=== PATIENT | female | born 1980 | race Caucasian/White ===

== ENCOUNTER 2020-12-17 | Inpatient (IN) ==
[2020-12-17] MEDS ORDERED: SODIUM CHLORIDE 0.9% 1000ML 1,000 ML IV STA (00:18)
[2020-12-17] MEDS ORDERED: ONDANSETRON INJ 2 MG/ML 2 ML VIAL IV STA (00:38)
[2020-12-17] MEDS ORDERED: HYDROmorphone INJ 0.5 MG/0.5 ML SYR IV STA (00:38)
[2020-12-17 00:59] LABS: Basophils # (auto) 0.04 K/uL (0-0.2); Basophils % (auto) 0.5 %; Eosinophils # (auto) 0.28 K/uL (0-0.5); Eosinophils % (auto) 3.2 %; Hemoglobin 13.9 g/dL (12.0-16.0); Immature Granulocytes # (auto) 0.02 K/uL (0.00-0.02); Immature Granulocytes % (auto) 0.2 %; Lymphocytes # (auto) 1.99 K/uL (1.2-3.4); Lymphocytes % (auto) 22.6 %; Mean Corpuscular Hemoglobin 30.3 pg (25-34); Mean Corpuscular Hgb Conc 33.9 g/dL (32-36); Mean Corpuscular Volume 89.5 fL (80-100); Mean Platelet Volume 10.8 fL (7.4-10.4); Monocytes # (auto) 0.71 K/uL (0.11-0.59); Neutrophils # (auto) 5.78 K/uL (1.4-6.5); Neutrophils % (auto) 65.5 %; Platelet Count 209 K/uL (130-400); RDW Standard Deviation 42.7 fL (36.4-46.3); Red Blood Count 4.58 M/uL (4.2-5.4); White Blood Count 8.82 K/uL (4.8-10.8)
[2020-12-17 00:59] LABS: Appearance Urine Cloudy (Clear); Bacteria Urine Automated Negative (Negative); Bilirubin Urine Negative (Negative); Blood Urine 3+ (Negative); Color Urine Yellow; Epithelial Cell Urine Auto >30 /lpf (0-5); Glucose Urine UA Negative (Negative); Ketones Urine Negative (Negative); Leukocyte Esterase Urine 1+ (Negative); Nitrite Urine Negative (Negative); Protein Urine Trace (Negative); RBC Urine Automated >30 /hpf (0-4); Specific Gravity Urine 1.023 (1.000-1.030); Urobilinogen Urine Negative (Negative); pH Urine 6.5 (4.5-7.5)
[2020-12-17 01:17] LABS: Albumin Level 3.3 gm/dl (3.4-5.0); BUN Creatinine Ratio 18.2 (10-20); Calcium 8.4 mg/dl (8.5-10.1); Creatinine Clr Calc Pharmacy 61.1 ml/min; Est GFR (African American) 61.9 ml/min; Est GFR (Non-African American) 53.4 ml/min; Potassium 4.3 mmol/L (3.5-5.1)
[2020-12-17 01:20] LABS: Bilirubin,Total 0.3 mg/dl (0.2-1); Globulin 3.4 gm/dl (2.5-4.0); Total Protein 6.7 gm/dl (6.4-8.2)
[2020-12-17] MEDS ORDERED: OPTIRAY 320 100ml IV ONE (01:35)
--- NOTE | 2020-12-17 01:40 | Emergency Department Note ---
History of Present Illness General Chief complaint: Abdominal Pain Stated complaint: RT SIDE ABD PAIN Source: patient and RN notes reviewed Mode of arrival: ambulatory Limitations: no limitations History of Present Illness Provider complaint: Right-sided abdominal pain Maximum Pain Intensity: 9 This patient is a 40-year-old female who presents to the emergency department with complaints of right-sided abdominal pain that seems to be intermittently worsening despite oral Bactrim that was prescribed by the urgent care. Patient has been on this antibiotic for over 2 days without any improvement. She was diagnosed with a UTI. Patient states she did have fried chicken for lunch and dinner but does not feel that the pain correlates with eating. She denies any vomiting but states she has nauseous. She denies any fevers or diarrhea. Patient denies any chance of and states she is on oral control. Home Medications Medication Instructions Recorded Confirmed Type fluoxetine 40 mg capsule 80 mg PO DAILY 04/27/19 12/17/20 History norethindrone 1.5 mg-ethinyl 1 tab PO DAILY 04/27/19 12/17/20 History estradiol 30 mcg(21)/iron 75 mg(7) tablet (Microgestin Fe 1.5/30 (28)) Allergies Allergy/AdvReac Type Severity Reaction Status Date / Time No Known Allergies Allergy Verified 12/17/20 00:57 Past Med/Surg History Medical History Depression with anxiety Surgical History Hx of adenoidectomy Hx of section Family History Mother Myocardial infarction Denies family history of Ovarian cancer Prostate cancer Breast cancer Colorectal cancer Social History Smoking Status: Never smoker Hx Alcohol Use: No Hx Substance Use: No Preferred Language: Yoruba Communication Ability: Effective 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 and A total of 10 systems reviewed and were otherwise negative Physical Exam Vital Signs Vital Signs - 24 hr 12/17/20 00:02 12/17/20 02:54 Temperature 36.2 C L Temperature Source Temporal Artery Scan Pulse Rate 70 Pulse Rate [Brachial] 59 L Pulse Rhythm Regular Respiratory Rate 18 20 Respiratory Effort / Characteristics Non-Labored Spontaneous Respiratory Depth Normal Respiratory Pattern Regular Blood Pressure 142/94 H Blood Pressure [Right Arm] 148/98 H Blood Pressure Mean 110 Blood Pressure Mean [Right Arm] 114 Pulse Oximetry 98 97 Oxygen Delivery Method Room Air Sepsis Recent Fever Within 48 Hours No Sepsis New/Unexplained Change in Mental Status No Sepsis Action Taken by Nursing No Action Required Vital signs reviewed. General: Well-appearing 40 yo female, in significant discomfort. HEENT: No scleral icterus, PERRLA, neck supple. Atraumatic. Cardiovascular: Regular rate and rhythm, no extra sounds. Pulmonary: Clear to auscultation bilaterally, normal work of breathing. Abdomen: Soft, diffusely tender >RUQ but no CVA tenderness, mildly distended, nondistended, positive bowel sounds. Musculoskeletal: Atraumatic, no peripheral edema. Neurologic: Patient awake alert and oriented x 3 Skin: Warm, dry, no rash Course Administered Medications Fluoxetine HCl (Fluoxetine Hcl 20 Mg Cap) 80 mg PO DAILY NEELAM Stop: 01/16/21 08:59 Last Admin: 12/17/20 07:23 Dose: Not Given Documented by: [id number] Hydromorphone HCl (Hydromorphone Inj 1 Mg/Ml Syringe) 0.5 mg IV Q2H PRN PRN Reason: Pain Stop: 12/31/20 04:46 Last Admin: 12/17/20 07:29 Dose: 0.5 mg Documented by: [id number] Lactated Ringer's (Lr) 1,000 mls @ 80 mls/hr IV .[id number] NEELAM Stop: 12/18/20 05:59 Last Admin: 12/17/20 16:25 Dose: 80 mls/hr Documented by: [id number] Infusion: 12/17/20 16:25 Dose: 80 mls/hr Documented by: [id number] Admin: 12/17/20 05:03 Dose: 80 mls/hr Documented by: [id number] Miscellaneous (*Oral Contraceptive*Order Awaiting Action) 1 ea N/A QS NEELAM Stop: 01/16/21 07:59 Last Admin: 12/17/20 12:37 Dose: Not Given Documented by: [id number] Admin: 12/17/20 07:23 Dose: Not Given Documented by: [id number] Ondansetron HCl (Ondansetron Inj 2 Mg/Ml 2 Ml Vial) 4 mg IV Q6H PRN PRN Reason: Nausea And Vomiting Stop: 01/16/21 04:59 Last Admin: 12/17/20 07:29 Dose: 4 mg Documented by: [id number] Discontinued Medications Hydromorphone HCl (Hydromorphone Inj 0.5 Mg/0.5 Ml Syr) 0.5 mg IV NOW STA Stop: 12/17/20 00:39 Last Admin: 12/17/20 01:00 Dose: 0.5 mg Documented by: [id number] Hydromorphone HCl (Hydromorphone Inj 0.5 Mg/0.5 Ml Syr) 0.5 mg IV Q30M PRN PRN Reason: Pain Stop: 12/31/20 02:26 Last Admin: 12/17/20 02:44 Dose: 0.5 mg Documented by: [id number] Hydromorphone HCl (Hydromorphone Inj 0.5 Mg/0.5 Ml Syr) Confirm Administered Dose 0.5 mg .ROUTE .STK-MED ONE Stop: 12/17/20 04:54 Last Admin: 12/17/20 05:06 Dose: 0.5 mg Documented by: [id number] Sodium Chloride (Nss 1000ml) 1,000 mls @ 999 mls/hr IV .Q1H1M STA Stop: 12/17/20 01:18 Last Infusion: 12/17/20 02:06 Dose: 0 mls/hr Documented by: [id number] Admin: 12/17/20 01:00 Dose: 999 mls/hr Documented by: [id number] Ceftriaxone Sodium (Rocephin) 2,000 mg in 70 mls @ 140 mls/hr IV NOW STA Stop: 12/17/20 02:56 Last Infusion: 12/17/20 04:10 Dose: 0 mls/hr Documented by: [id number] Admin: 12/17/20 02:53 Dose: 140 mls/hr Documented by: [id number] Ioversol (Optiray 320 100ml) 94 ml IV ONCE ONE Stop: 12/17/20 01:36 Last Admin: 12/17/20 01:36 Dose: 94 ml Documented by: [id number] Ondansetron HCl (Ondansetron Inj 2 Mg/Ml 2 Ml Vial) 4 mg IV NOW STA Stop: 12/17/20 00:39 Last Admin: 12/17/20 01:00 Dose: 4 mg Documented by: [id number] Ondansetron HCl (Ondansetron Inj 2 Mg/Ml 2 Ml Vial) Confirm Administered Dose 4 mg .ROUTE .STK-MED ONE Stop: 12/17/20 04:56 Last Admin: 12/17/20 05:03 Dose: 4 mg Documented by: [id number] Medical Decision Making Differential Diagnosis Etiologies such as biliary colic, cholecystitis, hepatitis, perihepatitis, pancreatitis, cardiac disease, pancreatitis, gastritis, peptic ulcer disease, appendicitis, ovarian cyst, ovarian torsion, ectopic , pelvic inflammatory disease, cystitis, diverticulitis, mesenteric ischemia, inflammatory bowel disease, ileus, bowel obstruction, aortic pathology, shingles, as well as others were considered. Medical Records Attestation: I reviewed the patient's medical records. Home Medications Current Medication List: was personally reviewed by me Laboratory Data Attestation: I reviewed the patient's lab results. Result diagrams: 12/17/20 00:50 12/17/20 00:50 Lab Results 12/17/20 12/17/20 12/17/20 Range/Units 00:30 00:30 00:50 WBC 8.82 (4.8-10.8) K/uL RBC 4.58 (4.2-5.4) M/uL Hgb 13.9 (12.0-16.0) g/dL Hct 41.0 (37-47) % MCV 89.5 (80-100) fL MCH 30.3 (25-34) pg MCHC 33.9 (32-36) g/dL RDW Std Deviation 42.7 (36.4-46.3) fL RDW Coeff of [place] 13.0 (11.5-14.5) % Plt Count 209 (130-400) K/uL MPV 10.8 H (7.4-10.4) fL Immature Gran % (Auto) 0.2 % Neut % (Auto) 65.5 % Lymph % (Auto) 22.6 % [place] % (Auto) 8.0 % Eos % (Auto) 3.2 % Baso % (Auto) 0.5 % Neut # (Auto) 5.78 (1.4-6.5) K/uL Lymph # (Auto) 1.99 (1.2-3.4) K/uL [place] # (Auto) 0.71 H (0.11-0.59) K/uL Eos # (Auto) 0.28 (0-0.5) K/uL Baso # (Auto) 0.04 (0-0.2) K/uL Immature Gran # (Auto) 0.02 (0.00-0.02) K/uL Sodium (136-145) mmol/L Potassium (3.5-5.1) mmol/L Chloride (98-107) mmol/L Carbon Dioxide (21-32) mmol/L Anion Gap (3-11) BUN (7-18) mg/dl Creatinine (0.6-1.2) mg/dl Est Cr Clr Drug Dosing ml/min Est GFR ( Amer) ml/min Est GFR (Non-Af Amer) ml/min BUN/Creatinine Ratio (10-20) Glucose (70-99) mg/dl Calcium (8.5-10.1) mg/dl Total Bilirubin (0.2-1) mg/dl AST (15-37) U/L ALT (12-78) U/L Alkaline Phosphatase (45-117) U/L Total Protein (6.4-8.2) gm/dl Albumin (3.4-5.0) gm/dl Globulin (2.5-4.0) gm/dl Albumin/Globulin Ratio (0.9-2) Lipase (73-393) U/L Urine Color Yellow Urine Appearance Cloudy A (Clear) Urine pH 6.5 (4.5-7.5) Ur Specific [place] 1.023 (1.000-1.030) Urine Protein Trace H (Negative) Urine Glucose (UA) Negative (Negative) Urine Ketones Negative (Negative) Urine Blood 3+ H (Negative) Urine Nitrite Negative (Negative) Urine Bilirubin Negative (Negative) Urine Urobilinogen Negative (Negative) Ur Leukocyte Esterase 1+ H (Negative) Urine WBC (Auto) 5-10 H (0-5) /hpf Urine RBC (Auto) >30 H (0-4) /hpf U Hyaline Cast (Auto) 1-5 (0-5) /lpf U Epithel Cells (Auto) >30 H (0-5) /lpf Urine Bacteria (Auto) Negative (Negative) POC Ur Test NEG (NEG) COVID-19 Eval Order SARS-CoV-2 (PCR) (Negative) 12/17/20 12/17/20 12/17/20 Range/Units 00:50 00:50 00:50 WBC (4.8-10.8) K/uL RBC (4.2-5.4) M/uL Hgb (12.0-16.0) g/dL Hct (37-47) % MCV (80-100) fL MCH (25-34) pg MCHC (32-36) g/dL RDW Std Deviation (36.4-46.3) fL RDW Coeff of [place] (11.5-14.5) % Plt Count (130-400) K/uL MPV (7.4-10.4) fL Immature Gran % (Auto) % Neut % (Auto) % Lymph % (Auto) % [place] % (Auto) % Eos % (Auto) % Baso % (Auto) % Neut # (Auto) (1.4-6.5) K/uL Lymph # (Auto) (1.2-3.4) K/uL [place] # (Auto) (0.11-0.59) K/uL Eos # (Auto) (0-0.5) K/uL Baso # (Auto) (0-0.2) K/uL Immature Gran # (Auto) (0.00-0.02) K/uL Sodium 140 (136-145) mmol/L Potassium 4.3 (3.5-5.1) mmol/L Chloride 112 H (98-107) mmol/L Carbon Dioxide 25 (21-32) mmol/L Anion Gap 4.0 (3-11) BUN 23 H (7-18) mg/dl Creatinine 1.25 H (0.6-1.2) mg/dl Est Cr Clr Drug Dosing 61.1 ml/min Est GFR ( Amer) 61.9 ml/min Est GFR (Non-Af Amer) 53.4 ml/min BUN/Creatinine Ratio 18.2 (10-20) Glucose 124 H (70-99) mg/dl Calcium 8.4 L (8.5-10.1) mg/dl Total Bilirubin 0.3 (0.2-1) mg/dl AST 16 (15-37) U/L ALT 19 (12-78) U/L Alkaline Phosphatase 73 (45-117) U/L Total Protein 6.7 (6.4-8.2) gm/dl Albumin 3.3 L (3.4-5.0) gm/dl Globulin 3.4 (2.5-4.0) gm/dl Albumin/Globulin Ratio 1.0 (0.9-2) Lipase 124 (73-393) U/L Urine Color Urine Appearance (Clear) Urine pH (4.5-7.5) Ur Specific [place] (1.000-1.030) Urine Protein (Negative) Urine Glucose (UA) (Negative) Urine Ketones (Negative) Urine Blood (Negative) Urine Nitrite (Negative) Urine Bilirubin (Negative) Urine Urobilinogen (Negative) Ur Leukocyte Esterase (Negative) Urine WBC (Auto) (0-5) /hpf Urine RBC (Auto) (0-4) /hpf U Hyaline Cast (Auto) (0-5) /lpf U Epithel Cells (Auto) (0-5) /lpf Urine Bacteria (Auto) (Negative) POC Ur Test (NEG) COVID-19 Eval Order Covid19 at [facility] SARS-CoV-2 (PCR) NEGATIVE (Negative) Imaging Data Radiologist's Impression: Abdomen/Pelvis CT 12/17/20 00:37 CT OF THE ABDOMEN AND PELVIS WITH CONTRAST CLINICAL HISTORY: Right upper quadrant tenderness. COMPARISON STUDY: None. TECHNIQUE: Following IV administration of 94 mL of Optiray, axial images of the abdomen and pelvis were obtained from the lung bases to the proximal femurs. Images were reviewed in the axial, sagittal, and coronal planes. IV contrast was administered without complication. Automated exposure control was utilized for the study. A dose lowering technique was utilized adhering to the principles of ALARA. CT DOSE: 522.56 mGy.cm FINDINGS: Lung bases are unremarkable. An 8 mm proximal right ureteral calculus at the L4-L5 level results in moderate right hydronephrosis with a delayed nephrogram and moderate perinephric fluid. Bilateral renal calculi measure up to 7 mm. There is a left renal cyst. There is also a right renal cyst. The liver, spleen, adrenal glands and pancreas are unremarkable. There is no biliary or pancreatic ductal dilatation. There is no evidence for a bowel obstruction. The appendix is surgically absent. No acute fracture or suspicious lesion is identified within the visualized skeletal structures. IMPRESSION: 1. 8 mm proximal right ureteral calculus which results in moderate hydr onephrosis with delayed nephrogram and moderate perinephric fluid. 2. Bilateral nephrolithiasis. ACT 112: Negative or not required by law. Electronically signed by: Zenon Johnson M.D. 12/17/2020 7:34 AM Blood Pressure Blood Pressure Findings: Elevated blood pressure Blood Pressure Disposition: elevated BP felt to be situational MDM Narrative This patient was evaluated and appeared to be in some discomfort. IV access was obtained and laboratory work was drawn. An order for cardiac monitoring was placed and the patient is noted to be in a sinus rhythm at 70 bpm. Patient was hydrated with normal saline solution, given IV Dilaudid and Zofran for her pain. Patient's laboratory work reveals a normal WBC, normal LFTs. Creatinine is noted to be 1.25. UA significant for blood. CT imaging of the abdomen pelvis was performed and reveals an 8 mm right proximal ureteral calculus with moderate hydronephrosis. Patient was given additional pain medication for uncontrolled discomfort. Case was discussed with the hospitalist, Dr. Cleaning for further management. Patient was aware of the plan and agreed. Impression & Plan Hydronephrosis with urinary obstruction due to ureteral calculus, Colic, ureteral Discharge Plan Visit Data Chief Complaint: Abdominal Pain Stated Complaint: RT SIDE ABD PAIN ED Provider: Anne Marie Cabral Discharge Problem: Hydronephrosis with urinary obstruction due to ureteral calculus, Colic, ureteral Patient Disposition: Admitted As Inpatient Discharge Instructions Interventions: ED Discharge Assessment Last Done: 12/17/20 04:25
[2020-12-17] MEDS ORDERED: HYDROmorphone INJ 0.5 MG/0.5 ML SYR IV PRN (02:27)
[2020-12-17] MEDS ORDERED: cefTRIAXone SODIUM 2,000 MG/70 ML BAG IV STA (02:27)
--- NOTE | 2020-12-17 03:17 | History & Physical Report ---
Date of Service December 17, 2020 Assessment & Plan (1) Nephrolithiasis: Plan: 40yo female with 1 week of right sided flank pain. CT suggestive of renal stone, possible hydronephrosis. CT reading by [email or web address] is pending. -Admit to medical -Strain urine -Toradol PRN -Dilaudid PRN -Ceftriaxone 2gm IV daily -Urology consultation appreciated (2) Depression with anxiety: Plan: Chronic -Continue Fluoxetine 80mg daily Plan: F/E/N - LR at 80mL/hr, electrolytes WNL, NPO Ppx - Low risk for DVT - SCDs Code - Full Dispo - Admit to medical History of Present Illness Chief Complaint: right flank pain Primary Care Provider: Pushpa Baldiwn MD 40yo female presenting with one week of cramping abdominal pain with radiation to groin. Patient denies fever, but has had some nausea and chills. She was seen at Urgent Care and had a UA which suggested infection so was started on Bactrim. No additional complaints ER Course: CT abdomen suggestive of renal stone - read pending Dilaudid Ceftriaxone Zofran NSS Allergies Allergy/AdvReac Type Severity Reaction Status Date / Time No Known Allergies Allergy Verified 12/17/20 00:57 Home Medications Medication Instructions Recorded Confirmed Type fluoxetine 40 mg capsule 80 mg PO DAILY 04/27/19 12/17/20 History norethindrone 1.5 mg-ethinyl 1 tab PO DAILY 04/27/19 12/17/20 History estradiol 30 mcg(21)/iron 75 mg(7) tablet (Microgestin Fe 1.5/30 (28)) Past Med/Surg History Medical History (Updated 12/17/20 @ 03:13 by Xiomara Cleaning DO) Depression with anxiety Surgical History (Updated 04/27/19 @ 16:19 by YESSENIA Mejias) Hx of adenoidectomy Hx of section Family History (Updated 04/27/19 @ 16:19 by YESSENIA Mejias) Mother Myocardial infarction Denies family history of Ovarian cancer Prostate cancer Breast cancer Colorectal cancer Social History (Updated 04/27/19 @ 16:19 by YESSENIA Mejias) Smoking Status: Never smoker Hx Alcohol Use: No Hx Substance Use: No Preferred Language: Nigerian marital status: Current Living Situation: Family current occupational status: employed Feels Safe at Home: Yes caffeine: Yes Dental Care, Regularly: No Physical Activity Frequency: 1-2 Times per Week Seatbelt Use: always Sunscreen Use: Yes Review of Systems Review of Systems: General: Patient denies fevers, malaise, weight loss or weight gain Skin: Patient denies bruising, bleeding or rash HEENT: Patient denies headache, visual changes, sore throat, difficulty swa llowing, stiff neck Cardio: Patient denies chest pain, palpitations, shortness of breath, lightheadedness Pulmonary: Patient denies cough, wheeze GI: Patient denies vomiting, diarrhea, constipation : Patient denies dysuria, frequency, urgency or hematuria Musculoskeletal: Patient denies swelling or pain of the joints, edema Neuro: Patient denies numbness, tingling, weakness or falls Psych: Patient denies depression, anxiety Physical Exam Physical Exam: General: patient resting, uncomfortable but NAD, non-toxic in appearance, AA&O x 4 Skin: warm, dry, intact, no rashes or lesions, tattoos HEENT: NC/AT, PERRL, EOMI, anicteric sclera, conjunctiva without injection, external ear normal to inspection and nontender, nares patent, moist mucus membranes, dentition intact, no oropharyngeal lesions, neck supple, trachea midline, no LAD, no thyromegaly, no JVD Heart: +S1/S2, regular, no m/r/g Lungs: equal air entry bilaterally, no rales/rhonchi/wheezes Abd: +BS, soft, tender in right abdomen without rebound/guarding/peritoneal signs, ND, no masses/organomegaly/ascites Ext: warm, 2+ pulses in UE/LE bilaterally, no clubbing/cyanosis or edema Neuro: nonfocal, patient AA&O x 4, speech intact, no facial droop, moving all extremities on command with equal strength 5/5 Results & Data Results & Data ([facility]) Vital Signs (Past 12 Hours) Vital Signs Temp Pulse Pulse Resp BP BP Pulse Ox 12/17/20 02:54 59 L 20 148/98 H 97 12/17/20 00:02 36.2 C L 70 18 142/94 H 98 Laboratory Results Laboratory Results WBC 8.82 K/uL (4.8-10.8) 12/17/20 00:50 RBC 4.58 M/uL (4.2-5.4) 12/17/20 00:50 Hgb 13.9 g/dL (12.0-16.0) 12/17/20 00:50 Hct 41.0 % (37-47) 12/17/20 00:50 MCV 89.5 fL (80-100) 12/17/20 00:50 MCH 30.3 pg (25-34) 12/17/20 00:50 MCHC 33.9 g/dL (32-36) 12/17/20 00:50 RDW Std Deviation 42.7 fL (36.4-46.3) 12/17/20 00:50 RDW Coeff of Yury 13.0 % (11.5-14.5) 12/17/20 00:50 Plt Count 209 K/uL (130-400) 12/17/20 00:50 MPV 10.8 fL (7.4-10.4) H 12/17/20 00:50 Immature Gran % (Auto) 0.2 % 12/17/20 00:50 Neut % (Auto) 65.5 % 12/17/20 00:50 Lymph % (Auto) 22.6 % 12/17/20 00:50 [place] % (Auto) 8.0 % 12/17/20 00:50 Eos % (Auto) 3.2 % 12/17/20 00:50 Baso % (Auto) 0.5 % 12/17/20 00:50 Neut # (Auto) 5.78 K/uL (1.4-6.5) 12/17/20 00:50 Lymph # (Auto) 1.99 K/uL (1.2-3.4) 12/17/20 00:50 [place] # (Auto) 0.71 K/uL (0.11-0.59) H 12/17/20 00:50 Eos # (Auto) 0.28 K/uL (0-0.5) 12/17/20 00:50 Baso # (Auto) 0.04 K/uL (0-0.2) 12/17/20 00:50 Immature Gran # (Auto) 0.02 K/uL (0.00-0.02) 12/17/20 00:50 Sodium 140 mmol/L (136-145) 12/17/20 00:50 Potassium 4.3 mmol/L (3.5-5.1) 12/17/20 00:50 Chloride 112 mmol/L (98-107) H 12/17/20 00:50 Carbon Dioxide 25 mmol/L (21-32) 12/17/20 00:50 Anion Gap 4.0 (3-11) 12/17/20 00:50 BUN 23 mg/dl (7-18) H 12/17/20 00:50 Creatinine 1.25 mg/dl (0.6-1.2) H 12/17/20 00:50 Est Cr Clr Drug Dosing 61.1 ml/min 12/17/20 00:50 Est GFR ( Amer) 61.9 ml/min 12/17/20 00:50 Est GFR (Non-Af Amer) 53.4 ml/min 12/17/20 00:50 BUN/Creatinine Ratio 18.2 (10-20) 12/17/20 00:50 Glucose 124 mg/dl (70-99) H 12/17/20 00:50 Calcium 8.4 mg/dl (8.5-10.1) L 12/17/20 00:50 Total Bilirubin 0.3 mg/dl (0.2-1) 12/17/20 00:50 AST 16 U/L (15-37) 12/17/20 00:50 ALT 19 U/L (12-78) 12/17/20 00:50 Alkaline Phosphatase 73 U/L (45-117) 12/17/20 00:50 Total Protein 6.7 gm/dl (6.4-8.2) 12/17/20 00:50 Albumin 3.3 gm/dl (3.4-5.0) L 12/17/20 00:50 Globulin 3.4 gm/dl (2.5-4.0) 12/17/20 00:50 Albumin/Globulin Ratio 1.0 (0.9-2) 12/17/20 00:50 Lipase 124 U/L (73-393) 12/17/20 00:50 Urine Color Yellow 12/17/20 00:30 Urine Appearance Cloudy (Clear) A 12/17/20 00:30 Urine pH 6.5 (4.5-7.5) 12/17/20 00:30 Ur Specific [place] 1.023 (1.000-1.030) 12/17/20 00:30 Urine Protein Trace (Negative) H 12/17/20 00:30 Urine Glucose (UA) Negative (Negative) 12/17/20 00:30 Urine Ketones Negative (Negative) 12/17/20 00:30 Urine Blood 3+ (Negative) H 12/17/20 00:30 Urine Nitrite Negative (Negative) 12/17/20 00:30 Urine Bilirubin Negative (Negative) 12/17/20 00:30 Urine Urobilinogen Negative (Negative) 12/17/20 00:30 Ur Leukocyte Esterase 1+ (Negative) H 12/17/20 00:30 Urine WBC (Auto) 5-10 /hpf (0-5) H 12/17/20 00:30 Urine RBC (Auto) >30 /hpf (0-4) H 12/17/20 00:30 U Hyaline Cast (Auto) 1-5 /lpf (0-5) 12/17/20 00:30 U Epithel Cells (Auto) >30 /lpf (0-5) H 12/17/20 00:30 Urine Bacteria (Auto) Negative (Negative) 12/17/20 00:30 POC Ur Test NEG (NEG) 12/17/20 00:30 COVID-19 Eval Order Covid19 at [facility] 12/17/20 00:50 SARS-CoV-2 (PCR) NEGATIVE (Negative) 12/17/20 00:50 PG Care Time/CCT Total # of Minutes Spent Total Time Spent with Patient: Total time spent is greater than 50% in coordination of care (as documented) at patient's floor/unit and/or counseling patient: Coding Level of Care Code 26752 Initial Inpt Care Lvl 2 Diagnoses Nephrolithiasis N20.0 Depression with anxiety F41.8
[2020-12-17] MEDS ORDERED: HYDROmorphone INJ 1 MG/ML SYRINGE IV PRN (04:47)
[2020-12-17] MEDS ORDERED: KETOROLAC TROMETHAMINE 15 MG/ML VIAL IV PRN (04:47)
[2020-12-17] MEDS ORDERED: HYDROmorphone INJ 0.5 MG/0.5 ML SYR ONE (04:53)
[2020-12-17] MEDS ORDERED: ONDANSETRON INJ 2 MG/ML 2 ML VIAL ONE (04:55)
[2020-12-17] MEDS ORDERED: ONDANSETRON INJ 2 MG/ML 2 ML VIAL IV PRN (05:00)
[2020-12-17] MEDS: LACTATED RINGER'S 1,000 ML IV SCH ×2 (05:03→16:25)
--- NOTE | 2020-12-17 05:32 | Urology Consultation ---
Date of Consultation December 17, 2020 Assessment & Plan (1) Nephrolithiasis: Patient has been admitted by the hospitalist service and we recommend proceeding as follows: Provide analgesics provide antiemetics hydration with IV fluids patient is receiving antibiotics in the form of Rocephin we will keep the patient n.p.o. for the present time. Due to the size of a kidney stone she may require cystoscopic intervention. We await Dr. King input concerning this matter. Attending note: Patient was independently evaluated, assessed, examined, and options discussed. Patient has obstructing stone. Had JUAN however was likely due to dehydration and poor oral intake. Patient has not been febrile. Pain is better controlled with medications. Patient was resting comfortably on examination. Has been tolerating IV hydration. Did discuss stone passage rates and possible spontaneous passage with maximum expulsion therapy. Plan for now is to continue with hydration and close monitoring. Patient can likely have diet today with plans for possible intervention in the coming days if patient worsens, develops fevers, or becomes more severely in pain with poor control. If possible and patient is tolerating could try a trial of passage over the coming week with plans for possible lithotripsy at the end of the week if patient is unable to pass stone. Did discuss stents as options. Discussed possible issues related to procedure including risk and benefits of scope and stent. At this point patient is comfortable and waiting. Patient's imaging was reviewed interpreted by myself. Patient has an 8 millimeter proximal obstructing stone. Agree with the note as above. History of Present Illness Reason for Consultation: Nephrolithiasis Attending Physician: Xiomara Cleaning DO History of Present Illness This is a 40-year-old female who has had 1 week of cramp-like abdominal pain as well as right flank pain with some radiation to the right groin. She was seen in urgent care and treated for a urinary tract infection but despite this her pain continued to get worse and became unbearable last night. She has had some associated nausea vomiting. She denies any fevers, or shakes. He notes that there were no palliative factors for the pain also no provocative factors but because of the worsening nature of her pain she presented to the emergency department In the emergency department patient had labs and imaging which independent reviewed. CT scan of the abdomen pelvis showed an obstructive 8 mm right-sided kidney stone in the mid ureter resulting in moderate right hydronephrosis. Labs included a CBC where her white blood cell count, hemoglobin, hematocrit, and platelet count were all within normal range. Chemistry profile showed sodium and potassium within normal range. BUN and creatinine both had a slight elevation at 23 and 1.2. Urinalysis showed 5-10 white blood cells per high- power field. There is no bacteria. Urine test was negative. A Covid test was negative. At the time of my interview the patient was resting comfortably in her bed and her pain was well controlled at the present time Allergies Allergy/AdvReac Type Severity Reaction Status Date / Time No Known Allergies Allergy Verified 12/17/20 00:57 Home Medications Medication Instructions Recorded Confirmed Type fluoxetine 40 mg capsule 80 mg PO DAILY 04/27/19 12/17/20 History norethindrone 1.5 mg-ethinyl 1 tab PO DAILY 04/27/19 12/17/20 History estradiol 30 mcg(21)/iron 75 mg(7) tablet (Microgestin Fe 1.5/30 (28)) Patient History Medical History Depression with anxiety Surgical History Hx of adenoidectomy Hx of section Family History Mother Myocardial infarction Denies family history of Ovarian cancer Prostate cancer Breast cancer Colorectal cancer Social History Smoking Status: Never smoker Hx Alcohol Use: No Hx Substance Use: No Preferred Language: Indonesian Communication Ability: Effective Supervisor Hand Workers Required: No Beliefs That Will Affect Care: None marital status: Current Living Situation: Spouse current occupational status: employed Feels Safe at Home: Yes caffeine: Yes Dental Care, Regularly: No Physical Activity Frequency: 1-2 Times per Week Seatbelt Use: always Sunscreen Use: Yes Assistive Devices: Glasses Review of Systems Constitutional: no fever and no chills Eyes: no diplopia Ear, Nose, Mouth, Throat: no ear pain Respiratory: no cough and no dyspnea Cardiovascular: no chest pain Gastrointestinal: + abdominal pain, + nausea and + vomiting Genitourinary: + flank pain (Right sided); no dysuria Musculoskeletal: + back pain (Right-sided flank pain) Integumentary: no rash Neurologic: no localized weakness Physical Exam Constitutional: well developed and well nourished; no acute distress Eyes: Wears glasses ENMT: Ears: no hearing impairment Neck: trachea midline Respiratory: normal respiratory effort; no respiratory distress and no labored breathing Cardiovascular: Rate/Rhythm: regular rate and regular rhythm Gastrointestinal (Abdomen): Abdomen is soft and nondistended no pain with palpation Musculoskeletal: No calf tenderness Skin: no rashes Neurologic: moves all extremities Results & Data ([facility]) Vital Signs (Past 12 Hours) Vital Signs Temp Pulse Pulse Resp BP BP Pulse Ox 12/17/20 04:11 61 20 152/102 H 97 12/17/20 02:54 59 L 20 148/98 H 97 12/17/20 00:02 36.2 C L 70 18 142/94 H 98 PG Care Time/CCT Total # of Minutes Spent Total Time Spent with Patient: Total time spent is greater than 50% in coord ination of care (as documented) at patient's floor/unit and/or counseling patient: Coding Level of Care Code 81592 Inpt Consult Level 5 Diagnoses Nephrolithiasis N20.0
[2020-12-17] MEDS: *ORAL CONTRACEPTIVE*ORDER AWAITING ACTION SCH ×3 (07:23→23:01)
[2020-12-17] MEDS: FLUoxetine HCL 20 MG CAP PO SCH (07:23)
--- NOTE | 2020-12-17 07:36 | CT Scan Report ---
CT OF THE ABDOMEN AND PELVIS WITH CONTRAST CLINICAL HISTORY: Right upper quadrant tenderness. COMPARISON STUDY: None. TECHNIQUE: Following IV administration of 94 mL of Optiray, axial images of the abdomen and pelvis we re obtained from the lung bases to the proximal femurs. Images were reviewed in the axial, sagittal, and coronal planes. IV contrast was administered without complication. Automated exposure control wa s utilized for the study. A dose lowering technique was utilized adhering to the principles of ALARA . CT DOSE: 522.56 mGy.cm FINDINGS: Lung bases are unremarkable. An 8 mm proximal right ureteral calculus at the L4-L5 level re sults in moderate right hydronephrosis with a delayed nephrogram and moderate perinephric fluid. Bila teral renal calculi measure up to 7 mm. There is a left renal cyst. There is also a right renal cyst. The liver, spleen, adrenal glands and pancreas are unremarkable. There is no biliary or pancreatic d uctal dilatation. There is no evidence for a bowel obstruction. The appendix is surgically absent. No acute fracture or suspicious lesion is identified within the visualized skeletal structures. IMPRESSION: 1. 8 mm proximal right ureteral calculus which results in moderate hydronephrosis with delayed nephro gram and moderate perinephric fluid. 2. Bilateral nephrolithiasis. ACT 112: Negative or not required by law. Electronically signed by: Zenon Johnson M.D. 12/17/2020 7:34 AM
--- NOTE | 2020-12-17 17:55 | Communication Note ---
Date of Service: December 17, 2020 Patient seen on daily rounds today. She is a 40-year-old white female with a past medical history of mixed anxiety with depression. She presented to the ED with a 1 week history of right flank pain. Denied fevers, chills, dysuria, hematuria or frequency. Work-up showed a mildly elevated creatinine of 1.25 (with a baseline of 0.86) and a questionably grossly infected urine as it was cloudy and leukocyte esterase positive but nitrite negative. CT of the abdomen and pelvis showed an 8 mm proximal right ureteral calculi with moderate hydronephrosis and moderate perinephritic fluid. She was hospitalized for pain control and urology consult. Currently, pain is adequately controlled. She is on empiric Rocephin. Currently denies fevers, chills, chest pain, shortness of breath, abdominal pain, nausea or vomiting. Vital signs stable. 111/76, 59, 16, 36.8, 96% on room air General: Resting comfortably in her hospital bed. NAD. Neck: No JVD. Negative hepatojugular reflex Cardiac: RRR with 2/6 VANDANA Lungs: CTA without W/R/R Abdomen: Normoactive X4. Soft and nontender in all quadrants. No significant CVA tenderness at present Extremities: No peripheral clubbing cyanosis or edema Neuro: A&O X4 cranial nerves II through XII are grossly intact no focal neuro deficits Skin: Tattoos A/P: 1. Obstructive nephrolithiasis with associated hydronephrosis 2. Abnormal urinalysisquestion UTI 3. Mixed anxiety with depression * Continue IV hydration, empiric antibiotic therapy (Rocephin). Will obtain urine culture and blood cultures. * Urology on consultappreciate recommendations. Suspect patient may need some type of intervention for an 8 mm obstructing stone * No added recommendations at this time * Follow-up lab data in the a.m. to trend * See full H&P as outlined from this morning * Plan of care discussed with Dr. Alves
[2020-12-18] MEDS ORDERED: cefTRIAXone SODIUM 2,000 MG in DEXTROSE 5% 50 ML IV SCH (02:00)
[2020-12-18 06:47] LABS: Basophils # (auto) 0.02 K/uL (0-0.2); Basophils % (auto) 0.4 %; Eosinophils # (auto) 0.18 K/uL (0-0.5); Eosinophils % (auto) 3.2 %; Hematocrit (blood only) 40.5 % (37-47); Hemoglobin 13.6 g/dL (12.0-16.0); Immature Granulocytes # (auto) 0.01 K/uL (0.00-0.02); Immature Granulocytes % (auto) 0.2 %; Lymphocytes # (auto) 1.39 K/uL (1.2-3.4); Lymphocytes % (auto) 24.6 %; Mean Corpuscular Hemoglobin 30.2 pg (25-34); Mean Corpuscular Hgb Conc 33.6 g/dL (32-36); Mean Corpuscular Volume 89.8 fL (80-100); Monocytes # (auto) 0.62 K/uL (0.11-0.59); Neutrophils # (auto) 3.44 K/uL (1.4-6.5); Neutrophils % (auto) 60.6 %; Platelet Count 194 K/uL (130-400); RDW Coefficient of Variation 13.1 % (11.5-14.5); RDW Standard Deviation 42.9 fL (36.4-46.3); Red Blood Count 4.51 M/uL (4.2-5.4); White Blood Count 5.66 K/uL (4.8-10.8)
[2020-12-18] MEDS: *ORAL CONTRACEPTIVE*ORDER AWAITING ACTION SCH ×2 (06:57→10:47)
[2020-12-18 07:29] LABS: BUN Creatinine Ratio 12.3 (10-20); Calcium 8.5 mg/dl (8.5-10.1); Creatinine Clr Calc Pharmacy 92.5 ml/min; Est GFR (African American) 101.5 ml/min; Est GFR (Non-African American) 87.6 ml/min; Magnesium 2.1 mg/dl (1.8-2.4); Potassium 4.4 mmol/L (3.5-5.1)
--- NOTE | 2020-12-18 08:25 | XRay Report ---
KUB CLINICAL HISTORY: Right proximal ureteral stone COMPARISON STUDY: CT of the pelvis December 17, 2020. FINDINGS: A 9 mm proximal right ureteral calculus is unchanged in position since prior exam. This is at the L4-L5 level. Multiple bilateral renal calculi are noted. Pelvic calcifications reflect phlebol iths. Bowel gas pattern is normal. IMPRESSION: 1. No change in position of a 9 mm proximal right ureteral calculus. 2. Bilateral nephrolithiasis. ACT 112: Negative or not required by law. Electronically signed by: Zenon Johnson M.D. 12/18/2020 8:24 AM
[2020-12-18] MEDS: FLUoxetine HCL 20 MG CAP PO SCH (08:53)
--- NOTE | 2020-12-18 08:55 | Urology Progress Note ---
Date of Service December 18, 2020 Assessment & Plan (1) Calculus of proximal right ureter: (2) Hydronephrosis with urinary obstruction due to ureteral calculus: Plan: 40 year-old female patient admitted with intractable right-sided flank pain secondary to obstructing 9 mm right proximal ureteral calculus. -Patient remains afebrile. -Labs reviewed - white count normal, creatinine returned to baseline. -Urine and blood cultures pending. -Discussed in detail options for stone management including inpatient ureteral stent versus outpatient surgical procedure. -KUB this AM does note visualization of calculus, discussed she is a candidate for ESWL. -After discussion with her , she prefers outpatient surgical intervention with ureteroscopy, laser lithotripsy. -She prefers to be discharged today with trial of passage in the meantime. -Recommend home with PRN pain medication, Flomax, and short course empiric antibiotic therapy, await final cultures. -Reviewed in detail signs/symptoms that would warrant return to ER. -Expected clinical course reviewed with patient, all questions answered. -Will arrange outpatient follow-up with urology service this week to arrange elective procedure. Thank you for allowing us to participate in the acute care of Mrs. Madden. Please reconsult us with additional questions, concerns or changes in patient status. Admission and Anticipated Discharge Date Admission Date: December 17, 2020 Subjective Patient examined at bedside - awake, alert, and non-toxic in appearance. She currently denies any flank or abdominal pain. Last had pain requiring pain medication yesterday morning. No known stone passage since admission. Denies fevers or chills. Denies nausea or vomiting. Denies dysuria or hematuria. Does note urinary frequency, denies urgency. Has been ambulating without dizziness/lightheadedness. NPO since midnight, reports she is hungry. Chart review: Afebrile Wbc 5.66 Hgb 13.6 Creatinine 0.83 (previously 1.25) Urine culture pending. Blood cultures pending. Currently on IV Ceftriaxone. KUB this AM - IMPRESSION: 1. No change in position of a 9 mm proximal right ureteral calculus. 2. Bilateral nephrolithiasis. Denies additional urologic concerns today. Review of Systems Constitutional: as per Subjective / HPI; no fever and no chills Gastrointestinal: as per Subjective / HPI; no nausea and no vomiting Genitourinary: as per Subjective / HPI Neurologic: as per Subjective / HPI Physical Exam Constitutional: well developed and well nourished; no acute distress and not ill appearing Respiratory: normal respiratory effort and able to speak in complete sentences; no respiratory distress and no audible wheezes Gastrointestinal (Abdomen): Inspection/Auscultation: abdomen normal to inspection; abdomen not distended Psychiatric: Orientation: alert, oriented x 3 and cooperative Affect: euthymic affect Results & Data ([facility]) Vital Signs (Past 12 Hours) Vital Signs Temp Pulse Resp BP Pulse Ox 12/18/20 07:00 37.2 C 57 L 18 113/73 96 12/17/20 22:07 37.0 C 66 16 119/78 96 PG Care Time/CCT Total # of Minutes Spent Total Time Spent with Patient: Total time spent is greater than 50% in coordination of care (as documented) at patient's floor/unit and/or counseling patient: Coding Level of Care Code 25737 Subseq Hosp Care Lvl 2 Diagnoses Calculus of proximal right ureter N20.1 Hydronephrosis with urinary obstruction due to ureteral calculus N13.2
--- NOTE | 2020-12-18 14:14 | Discharge Summary ---
Date of Service December 18, 2020 Admission HPI Per Admitting Provider 40yo female presenting with one week of cramping abdominal pain with radiation to groin. Patient denies fever, but has had some nausea and chills. She was seen at Urgent Care and had a UA which suggested infection so was started on Bactrim. No additional complaints ER Course: CT abdomen suggestive of renal stone - read pending Dilaudid Ceftriaxone Zofran NSS Principal Diagnosis Right ureterolithiasis Discharge Exam Constitutional WD/WN, vitals as above Eyes PERRL, conjunctivae normal, anicteric sclerae ENMT external ear and nose normal, oropharynx normal Neck trachea midline, no thyromegaly Respiratory normal respiratory effort, lungs clear to auscultation Cardiovascular RRR, no murmur, no edema Chest (Breasts) Chest: normal inspection of chest Gastrointestinal (Abdomen) normal bowel sounds, soft, nontender, no hepatosplenomegaly Musculoskeletal Extremities: extremities normal to inspection; no cyanosis and no clubbing Skin no rashes, warm and dry Neurologic moves all extremities and awake; no focal motor deficits Psychiatric A+Ox3, euthymic affect Lymphatic no lymphedema Discharge Data Allergies Allergy/AdvReac Type Severity Reaction Status Date / Time No Known Allergies Allergy Verified 12/17/20 00:57 Consultations 12/17/20 02:55 ED Decision to Admit Stat 12/17/20 03:09 Consult Urology Routine Ordered Studies 12/17/20 00:37 CT abd pelvis IV con only Urgent Abdomen/Pelvis CT 12/17/20 00:37 CT OF THE ABDOMEN AND PELVIS WITH CONTRAST CLINICAL HISTORY: Right upper quadrant tenderness. COMPARISON STUDY: None. TECHNIQUE: Following IV administration of 94 mL of Optiray, axial images of the abdomen and pelvis were obtained from the lung bases to the proximal femurs. Images were reviewed in the axial, sagittal, and coronal planes. IV contrast was administered without complication. Automated exposure control was utilized for the study. A dose lowering technique was utilized adhering to the principles of ALARA. CT DOSE: 522.56 mGy.cm FINDINGS: Lung bases are unremarkable. An 8 mm proximal right ureteral calculus at the L4-L5 level results in moderate right hydronephrosis with a delayed nephrogram and moderate perinephric fluid. Bilateral renal calculi measure up to 7 mm. There is a left renal cyst. There is also a right renal cyst. The liver, spleen, adrenal glands and pancreas are unremarkable. There is no biliary or pancreatic ductal dilatation. There is no evidence for a bowel obstruction. The appendix is surgically absent. No acute fracture or suspicious lesion is i dentified within the visualized skeletal structures. IMPRESSION: 1. 8 mm proximal right ureteral calculus which results in moderate hydronephrosis with delayed nephrogram and moderate perinephric fluid. 2. Bilateral nephrolithiasis. ACT 112: Negative or not required by law. Electronically signed by: Zenon Johnson M.D. 12/17/2020 7:34 AM KUB X-Ray 12/18/20 07:30 KUB CLINICAL HISTORY: Right proximal ureteral stone COMPARISON STUDY: CT of the pelvis December 17, 2020. FINDINGS: A 9 mm proximal right ureteral calculus is unchanged in position since prior exam. This is at the L4-L5 level. Multiple bilateral renal calculi are noted. Pelvic calcifications reflect phleboliths. Bowel gas pattern is normal. IMPRESSION: 1. No change in position of a 9 mm proximal right ureteral calculus. 2. Bilateral nephrolithiasis. ACT 112: Negative or not required by law. Electronically signed by: Zenon Johnson M.D. 12/18/2020 8:24 AM Hospital Course (1) Nephrolithiasis: 40yo female with 1 week of right sided flank pain. CT with 8 mm right prox urter stone with hydronephrosis -Admitted to medical was treated with IVFs, pain meds Seen by Urol and doing much better, no pain, ready for dc to home with outpt FLomax, keflex, and percocet prn f/u with Urology in 2 days to discuss stone management return prn worsening symptoms again (2) Depression with anxiety: Chronic -Continue Fluoxetine 80mg daily Ppx - Low risk for DVT - SCDs Code - Full Dispo -dc to home Total Time Total Time Spent Total Time Spent (In Minutes): 35 min Total Time Includes: Examination of the Patient, Discharge Planning, Medication Reconciliation and Communication With Other Providers (Urology GOLD TOOLER) Discharge Plan Discharge Items Patient Disposition: Home - Self-Care Reason For Visit: RIGHT FLANK PAIN Discharge Diagnosis: Ureterolithiasis Condition on Discharge: Good Activity: Resume your previous activity Non-emergency contact: Primary Care Provider and Urologist Call non-emergency contact if: you have any medication questions and your symptoms worsen Follow-up/Referrals: Pushpa Baldwin MD [Primary Care Provider] - (Follow up within 1-2 weeks) Marlin Dan PA-C [Physician Account Analyst] - 12/20/20 3:30 pm Diet: Regular Addtl Attending Provider Instructions: Please continue Flomax daily and pain medicine as needed. Take the antibiotics for 3 more days in case of infection in the urinary tract while stone is present. If you have worsening pain or cannot keep anything down by mouth, please return to the hospital. Addtl Service Desk Team Lead Provider Instructions: Please take all medications as prescribed and keep all follow-ups as scheduled. Please call our office at [phone] with any questions, concerns or need to reschedule appointments for any reason. We are happy to assist you. You were diagnosed with a 9 mm proximal right ureteral stone. You have elected outpatient management at this time. You are scheduled for an office visit this week to discuss scheduling your elective procedure. During this time: - Your urine may be cloudy or slightly bloody. - You may have some pain. Okay to take Tylenol or pain medication as prescribed. - Strain your urine to collect the stone if you do pass it. - Please bring specimen to your follow-up appointment to be studied in the lab, if able. - Recommend hydration as this will help with stone passage. When to call [facility] at [phone]: Fever of 101F or higher Heavy bleeding Pain that is not controlled with medicine Uncontrolled vomiting Problems urinating or inability to urinate Pending Studies at Discharge: Yes Stand-Alone Forms: My [facility], Smoking Cessation Medications and DC Order Prescriptions: New tamsulosin [Flomax] 0.4 mg capsule 0.4 mg PO HS Qty: 7 RF: 0 oxycodone-acetaminophen [Percocet] 5-325 mg tablet 1 - 2 tab PO Q6H PRN (Reason: severe pain) Qty: 7 RF: 0 acetaminophen [Tylenol] 325 mg tablet 650 mg PO Q4H PRN (Reason: pain) Qty: 10 RF: 0 cephalexin 500 mg capsule 500 mg PO BID Qty: 6 RF: 0 Continued fluoxetine 40 mg capsule 80 mg PO DAILY RF: 0 Microgestin Fe 1.5/30 (28) 1.5 mg-30 mcg (21)/75 mg (7) tablet 1 tab PO DAILY RF: 0 Discharge Orders: Discharge Order (Routine); Ordered 12/18/20 Ordered By: Beth Healy Admission Data Admit Date/Time: 12/17/20 03:09 Attending Provider: Beth Healy Admit Provider: Xiomara Cleaning Primary Care Provider: Pushpa Baldwin Other Providers: Calos King ; Xiomara Cleaning Coding Level of Care Code D/C DAY MANAGEMENT >30 MINS Diagnoses Nephrolithiasis N20.0 Depression with anxiety F41.8
== END 2020-12-18 14:51 | disposition home or self-care (01) | DRG 694 ==
LOC: ED → 3W 03:09 → SUATTDRO 03:09 → 3W 04:25